=== PATIENT | male | born 1945 | race Caucasian/White ===

== ENCOUNTER 2022-03-29 09:18 | Day surgery (SDC) | payer MEDICARE, BC ==
[~2022-03-29] VITALS: Ht 177.8 cm; Wt 97.5 kg
[~2022-03-29 09:18] MED LIST: ADVAIR 250/28 DISKU1 IH; ADVIL 200MG TA200 MG PO; COZAAR25 MG PO; PREVACID 15MG15 M1 PO; SPIRIVA18 MCG IH; VYTORIN 10 MG-21 TAB PO
[2022-03-29 10:13] VITALS: BP 145/79; PULSE 53; TEMP 97.4
[2022-03-29] MEDS ORDERED: COZAAR 50MG50 MG/TAB PO (10:17)
[2022-03-29] MEDS ORDERED: CEPHALEXIN500 M1 PO (10:17)
[2022-03-29] MEDS ORDERED: PROTONIX20 MG PO (10:18)
[2022-03-29] MEDS ORDERED: SINGULAIR 110 MG/TAB PO (10:18)
[2022-03-29] MEDS ORDERED: PLAVIX 75MG TAB75 MG PO (10:18)
[2022-03-29] MEDS ORDERED: NORVASC 10MG10 MG PO (10:18)
[2022-03-29] MEDS ORDERED: CRESTOR20 MG PO (10:19)
[2022-03-29] MEDS ORDERED: HCTZ12.5TAB PO (10:19)
[2022-03-29] MEDS ORDERED: 00186-0370-20 IH (10:20)
[2022-03-29] MEDS ORDERED: PROVENTIL0.09 MG/A1 IH (10:20)
[2022-03-29] MEDS ORDERED: RT SPIRIVA18 MCG IH (10:21)
[2022-03-29 11:20] VITALS: BP 115/73; PULSE 64; TEMP 97.1
[2022-03-29 11:35] VITALS: BP 120/73; PULSE 66
[2022-03-29 11:50] VITALS: BP 124/77; PULSE 64
--- NOTE | 2022-03-29 12:28 | NUR ---
1120: Patient arrived back into [facility] from Endo procedure. Patient is alert and awake. Vital signs stable on room air. Report received from JEREMY Colby. Patient requesting water and applesauce. Patient denies pain and nausea. Call light left within reach. at bedside. 1135: Patient vitally stable. Tolerating food and drink well. Denies pain or nausea at this time. 1150: Patient vitally stable. Tolerating food and drink well. Denies pain or nausea at this time. 1220: MD in to see patient. 1225: Patient meets discharge criteria. IV removed without complications. Went through discharge instructions with patient and . Patient got dressed. Escorted to patient entrance via wheelchair. Patient left in the care of his , Hiwot.
== END 2022-03-29 12:29 | disposition home or self-care (01) ==
LOC: SDCO 09:18
DX: Z12.11 Encounter for screening for malignant neoplasm of colon (principal); D12.5 Benign neoplasm of sigmoid colon; K57.30 Diverticulosis of large intestine without perforation or abscess without bleeding; K21.9 Gastro-esophageal reflux disease without esophagitis
CPT/HCPCS: J7030